=== PATIENT | male | born 1970 ===

== ENCOUNTER 2017-04-23 14:40 | Emergency (ER) | payer MEDICARE, MEDICAID ==
[2017-04-23 14:55] VITALS: BP 174/92
--- NOTE | 2017-04-23 15:30 | UC ---
Miguel Craft Jennifer, scribed for Tom Hatch MD on 04/23/17 at 1510 . Back Pain HPI - HPI Summary HPI Summary: The pt is a 46 y/o male who presents with back pain that began 6 days ago. Pt reports he was cleaning his house and scrubbing the floor with his right arm for hours. The next day, he felt tightness in his back that progressed to pain in the evening. He took Ibuprofen for the pain. Pt reports the pain has now radiated to his right elbow, and his right index finger and thumb began feeling numb two days ago. The pain is worsened when he moves his head to the left. Pt denies neck pain, wrist pain, and pain in the right forearm. - History of Current Complaint Chief Complaint: UCBackPain Stated Complaint: SHOULDER PAIN Time Seen by Provider: 04/23/17 15:00 Hx Obtained From: Patient Onset/Duration: Gradual Onset, Lasting Days - six days ago, Still Present, Worse Since Timing: Constant Severity Initially: Moderate Severity Currently: Moderate Pain Intensity: 6 Back Pain: Is Discrete @ - Under right scapula, Radiates To - right elbow Character: Stiffness - Pt describes as "tightness" Aggravating Factor(s): Other - Moving head to left Alleviating Factor(s): Nothing Associated Signs And Symptoms: Positive: Other - tightness in back radiating to right elbow, numbenss in right index finger and thumb. NEGATIVE: neck pain, wrist pain, pain in right forearm - Allergies/Home Medications Allergies/Adverse Reactions: Allergies Allergy/AdvReac Type Severity Reaction Status Date / Time No Known Allergies Allergy Verified 04/23/17 14:56 Home Medications: Home Medications Amlodipine Besylate [Norvasc] 5 mg PO DAILY 04/23/17 [History Confirmed 04/23/17 ] Aspirin 81 mg PO DAILY 04/23/17 [History Confirmed 04/23/17] Ibuprofen [Goodsense Ibuprofen] 200 mg PO Q6H PRN 04/23/17 [History Confirmed ] Lisinopril TAB* [Prinivil TAB*] 50 mg PO DAILY 04/23/17 [History Confirmed 04/23] PMH/Surg Hx/FS Hx/Imm Hx Previously Healthy: Yes - NEG: DM Cardiovascular History: Hypertension GI/ History: Kidney Stones - Surgical History Surgical History: None - Family History Known Family History: Positive: Hypertension - Father, grandmother - Social History Alcohol Use: None Substance Use Type: None Smoking Status (MU): Heavy Every Day Tobacco Smoker Amount Used/How Often: 1 PPD Review of Systems Musculoskeletal: Other: - Back tightness, pain to right elbow Neurological: Numbness - right index finger and thumb Is Patient Immunocompromised?: No All Other Systems Reviewed And Are Negative: Yes Physical Exam - Summary Physical Exam Summary: General: well-appearing, no pain distress Skin: warm, color reflects adequate perfusion, dry Head: normal Eyes: EOMI, DHAVAL ENT: normal Neck: supple, nontender Respiratory: CTA, breath sounds present Cardiovascular: RRR Abdomen: soft, nontender Bowel: present Musculoskeletal: Tender to mid back at the level of T3-T6 on the medial aspect of scapula, tender to palpation. On exam, full ROM and strength and no sensation deficits. Extension was 180 bilateral arms, Abduction was 130 bilateral arms, Internal rotation was T6 with left arm and T12 with right arm. Neurological: normal, sensory/motor intact, A&O x3 Psychological: affect/mood appropriate Triage Information Reviewed: Yes Vital Signs: Initial Vital Signs Temp 98.3 F 04/23/17 14:42 Pulse 102 04/23/17 14:42 Resp 16 04/23/17 14:42 BP 174/92 04/23/17 14:42 Pulse Ox 99 04/23/17 14:42 Vital Signs Reviewed: Yes Back Pain Course/Dx - Course Course Of Treatment: Medications reviewed. BP noted and advised to follow up with PCP. NO NEURO DEFICIT ON EXAM - Differential Dx/Diagnosis Provider Diagnoses: RIGHT POSTERIOR THORACIC MUSCLE STRAIN WITH RADICULOPATHY. Hypertension Discharge - Discharge Plan Condition: Stable Disposition: HOME Prescriptions: Methocarbamol TAB* [Robaxin 500 MG TAB*] 750 mg PO QID PRN #30 tab MDD 4 PRN Reason: Pain Patient Education Materials: Muscle Strain (ED), Cervical Radiculopathy (ED) Referrals: [facility] [Outside] Additional Instructions: FOLLOW UP WITH YOUR DOCTOR. GET RECHECKED FOR ANY WORSENING OF YOUR CONDITION OR QUESTIONS OR CONCERNS. YOUR BLOOD PRESSURE WAS ELEVATED TODAY; FOLLOW UP WITH YOUR PRIMARY CARE DOCTOR WITHIN ONE WEEK. The documentation as recorded by the Miguel crowell Jennifer accurately reflects the service I personally performed and the decisions made by , Tom Hatch MD.
== END 2017-04-23 15:25 | disposition home or self-care (01) ==
LOC: UCEAST 14:40
DX: S29.012A Strain of muscle and tendon of back wall of thorax, initial encounter (principal); X50.9XXA Other and unspecified overexertion or strenuous movements or postures, initial encounter; Y93.E5 Activity, floor mopping and cleaning; Y92.009 Unspecified place in unspecified non-institutional (private) residence as the place of occurrence of the external cause; M54.14 Radiculopathy, thoracic region; I10 Essential (primary) hypertension; Z87.442 Personal history of urinary calculi; Z79.82 Long term (current) use of aspirin; F17.210 Nicotine dependence, cigarettes, uncomplicated
CPT/HCPCS: 99202; G0463